=== PATIENT | male | born 1960 | race Caucasian/White ===

== ENCOUNTER 2018-11-18 14:56 | Day surgery (SDC) | payer MEDICAID ==
[~2018-11-18] VITALS: Ht 193 cm; Wt 112.7 kg
[~2018-11-18 14:56] MED LIST: ATOR10TA87 PO; IBUP-1573 PO
[2018-11-18 15:22] VITALS: BP 133/93
[2018-11-18] MEDS ORDERED: fentaNYL/PF 50MCG/1 ML 2ML syringe ONE (15:24)
[2018-11-18] MEDS ORDERED: MIDAZolam 5mg/5ml vial ONE (15:24)
[2018-11-18] MEDS ORDERED: METOPROLOL PO (15:45)
[2018-11-18] MEDS ORDERED: COQ-10 PO (15:46)
[2018-11-18] MEDS ORDERED: MULT-1074 PO (15:47)
[2018-11-18 15:55] VITALS: BP 126/78
[2018-11-18 16:05] VITALS: BP 125/84
[2018-11-18 16:15] VITALS: BP 130/79
[2018-11-18 16:25] VITALS: BP 120/78
== END 2018-11-18 16:44 | disposition home or self-care (01) ==
LOC: GI LAB 14:56
PROVIDERS: ATTEND Internal Medicine Gastroenterology
DX: K64.8 Other hemorrhoids (principal)
CPT/HCPCS: 45350; 99152; J2250; J3010; J7040